=== PATIENT | male | born 1990 | race Caucasian/White ===

== ENCOUNTER 2018-11-03 16:45 | Emergency (ER) | payer SELFPAY ==
[~2018-11-03] VITALS: Ht 175.3 cm; Wt 73.6 kg
[2018-11-03 20:13] VITALS: BP 124/84
[2018-11-03] MEDS ORDERED: ACETAMINOPHEN 325MG TABLET PO ONE (20:15)
== END 2018-11-03 21:02 | disposition home or self-care (01) ==
LOC: ER 16:45
DX: S00.01XA Abrasion of scalp, initial encounter (principal); F12.10 Cannabis abuse, uncomplicated; R55 Syncope and collapse; W22.8XXA Striking against or struck by other objects, initial encounter; Y93.89 Activity, other specified; Y92.89 Other specified places as the place of occurrence of the external cause; Y99.8 Other external cause status
CPT/HCPCS: 99284

== ENCOUNTER 2018-11-05 10:53 | Emergency (ER) | payer SELFPAY ==
[~2018-11-05] VITALS: Ht 175.3 cm; Wt 74.0 kg
[2018-11-05] MEDS ORDERED: ACETAMINOPHEN 325MG TABLET PO STA (11:56)
[2018-11-05 13:07] VITALS: BP 126/74
== END 2018-11-05 13:10 | disposition home or self-care (01) ==
LOC: ER 10:53
DX: S00.83XA Contusion of other part of head, initial encounter (principal); S06.0X0A Concussion without loss of consciousness, initial encounter; F12.10 Cannabis abuse, uncomplicated; W22.8XXA Striking against or struck by other objects, initial encounter; Y93.89 Activity, other specified; Y92.89 Other specified places as the place of occurrence of the external cause; Y99.8 Other external cause status
CPT/HCPCS: 99282